=== PATIENT | male | born 1990 | race Caucasian/White ===

== ENCOUNTER → 2024-05-16 | Outpatient (CLI) | payer OTHER ==
[~2024-05-16] MED LIST: ALPR.5 PO; ALPR1 PO; AMIT50 PO; AMOCLA500 PO; AMOX500 PO; ARIP10 PO; Abilify5 MG PO; Budeprion Xl300 MG PO; CODACE30 PO; DIAZ10 PO; Esgic Tablet1 EACH PO; HYDACE5 PO; HYDMOR4 PO; HYDPAM25; IBUP800 PO; Inderal 20 mg T20 MG; Inderal60 MG; LAMO100 PO; MIRT15 PO; MIRT30; MIRT30 PO; NAPR250; OMEP20ER PO; OXYACE5T PO; OXYC5 PO; PROC10 PO; PROM25 PO; PROZAC20 MG PO; RXOXYACE PO; Roxicodone5 MG PO; VARE1 PO
[2024-05-16 14:02] LABS: Albumin, Blood 4.4 g/dL (3.4-5.0); Albumin/Globulin Ratio 1.4 (0.8-1.8); Bilirubin, Total 0.3 mg/dL (0.1-1.0); Bun/Creatinine Ratio 14.1 (12.0-20.0); Creatinine, Blood 0.92 mg/dL (0.60-1.20); Globulin, Blood 3.1 g/dL (2.2-4.0); Potassium, Blood 4.2 mmol/L (3.5-5.5); Total Protein, Blood 7.5 g/dL (6.4-8.2)
== END | disposition home or self-care (01) ==
LOC: LAB 12:18 → LAB SHORT 12:18
PROVIDERS: Student in an Organized Health Care Education/Training Program
DX: F11.90 Opioid use, unspecified, uncomplicated (principal)
CPT/HCPCS: 80053

== ENCOUNTER → 2024-09-06 | Outpatient (CLI) | payer OTHER ==
[2024-09-06 12:41] LABS: CHOL/HDL RATIO 5.1; Cholesterol 223 mg/dL (50-200); HDL Cholesterol 44 mg/dL (>39); LDL/HDL RATIO 3.2; Low Density Lipoprotein Chol 140 mg/dL (0-110); Triglycerides 194 mg/dL (30-140); Very Low Density Lipoprot Chol 38 mg/dL (6-28)
== END | disposition home or self-care (01) ==
LOC: LAB SHORT 10:25 → LAB 10:25
PROVIDERS: Family Medicine
DX: E78.2 Mixed hyperlipidemia (principal); R68.82 Decreased libido
CPT/HCPCS: 80061; 84403